=== PATIENT | female | born 1945 | race Caucasian/White ===

== ENCOUNTER → 2019-11-14 14:01 | Outpatient (BNVA) | payer MEDICARE, OTHER, SELFPAY | PROVIDERS: PCP Registered Nurse; Visit Provider Internal Medicine Rheumatology | DX: M25.511 Pain in right shoulder (principal); Z79.899 Other long term (current) drug therapy; Z11.59 Encounter for screening for other viral diseases; Z11.1 Encounter for screening for respiratory tuberculosis; R76.8 Other specified abnormal immunological findings in serum; R29.898 Other symptoms and signs involving the musculoskeletal system; M70.61 Trochanteric bursitis, right hip; M70.62 Trochanteric bursitis, left hip; M79.10 Myalgia, unspecified site; Y93.9 Activity, unspecified | CPT/HCPCS: 36415; 80076; 81001; 82085; 82306; 82550; 82565; 82570; 84156; 84439; 84443; 85025; 85651; 86140; 86160; 86431; 86480; 86704; 86803; 87340; 99204 ==

== ENCOUNTER → 2019-12-04 10:12 | Outpatient (BNVA) | payer MEDICARE, OTHER, SELFPAY | PROVIDERS: PCP Registered Nurse; Visit Provider Internal Medicine Rheumatology | DX: Z79.899 Other long term (current) drug therapy (principal) | CPT/HCPCS: 36415; 82085 ==

== ENCOUNTER 2019-12-18 03:19 | Emergency (ER) | payer MEDICARE, OTHER, SELFPAY ==
[2019-12-18 03:21] VITALS: PULSE 74; RESP 18; TEMP 36.2; O2SAT 97; BMI 28.3
--- NOTE | 2019-12-18 03:30 | ECG_ITS ---
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 Measurements Intervals [place] Rate: 72 P: 48 MT: 121 QRS: 23 QRSD: 85 T: 26 QT: 373 QTc: 409 Interpretive Statements SINUS RHYTHM POSSIBLE LEFT ATRIAL ENLARGEMENT [-0.1mV P WAVE IN V1/V2] NONSPECIFIC ST & T-WAVE ABNORMALITY No previous ECG available for comparison Electronically Signed On 12-18-2019 17:09:58 CDT by Chica Alvarenga M.D. [id number]
--- NOTE | 2019-12-18 03:37 | W.ED.GENADLT ---
HPI - General Adult General: Chief complaint: General Medical Stated complaint: high blood pressure Time Seen by Provider: 12/18/19 03:27 Source: patient Mode of arrival: ambulatory Limitations: no limitations History of Present Illness: HPI narrative: 74-year-old female has a long history of high blood pressure. Patient states she also gets anxious at times. She states that tonight she is woken up twice and her blood pressure is been in the 200s. She took an extra clonidine and has had no relief. Blood pressure is now 219/108. She denies any chest pain or headache. States she has been feeling anxious about her blood pressure tonight and took an Atarax at home with minimal relief. Associated symptoms: Deny chest pain, dyspnea, headache(s), nausea, rash or vomiting Review of Systems Const: Denies: fever(s), chills, body aches or change in appetite Eyes: Denies: blurry vision or eye discomfort ENMT: Denies: throat pain or dental pain Card: Denies: chest pain Resp: Denies: dyspnea GI: Denies: abdominal pain, nausea, vomiting or diarrhea : Denies: dysuria Musc: Denies: neck pain or back pain Skin/Breast: Denies: rash Neuro: Denies: headache(s) Psych: Denies: depression Lamont/Lymph: Denies: easy bruising All/Imm: Denies: urticaria PFSH ED PFSH: Medical History Encounter for screening for other viral diseases Health education High risk medication use Hyperlipidemia Hypertension IBS (irritable bowel syndrome) Immunization counseling Joint pain Lower extremity weakness Myalgia Pain in joints PMR (polymyalgia rheumatica) Positive JARED (antinuclear antibody) Trochanteric bursitis of both hips Surgical History History of tonsillectomy Family History Other CAD (coronary artery disease) Cancer Chronic kidney disease (CKD) Diabetes Hyperlipidemia Hypertension Stroke Denies family history of Rheumatoid arthritis Lupus Lung disease Social History Smoking and tobacco status: never smoked Alcohol intake: never Marital status: History of recent travel: No Physical Exam Const: COMMON NORMALS: no acute distress, patient oriented x3 and healthy appearing HENMT: COMMON NORMALS: normocephalic and atraumatic HEAD & SCALP: normocephalic and atraumatic Eye: COMMON NORMALS: Equal, round and reactive pupils present and EOMs intact bilaterally PUPIL: Yes Equal, round and reactive pupils present Neck/C-Spine: COMMON NORMALS: full ROM and supple Chest: COMMONS NORMALS: normal inspection of the chest and normal palpation of entire chest wall Resp: COMMON NORMALS: normal respiratory effort, No retractions, No use of accessory muscles and clear to auscultation bilaterally AUSCULTATION: clear to auscultation bilaterally Cardio: COMMON NORMALS: regular rate, regular rhythm and No murmurs present (Cardio) RATE: regular rate RHYTHM: regular rhythm GI: COMMON NORMALS: Normal to inspection, nondistended, normoactive bowel sounds present, Soft to palpation, non-tender and no masses PALPATION: Yes Soft to palpation Extremity: COMMON NORMALS: normal to inspection and full ROM Neuro: COMMON NORMALS: patient oriented x3, moves all extremities and no focal motor deficits Psych: COMMON NORMALS: mental status grossly normal, Normal thought process present and cooperative THOUGHT PROCESS: Normal thought process present Skin: COMMON NORMALS: no rashes or lesions noted and no wounds GENERAL SKIN EXAM: no rashes or lesions noted Course Vital Signs: Vital signs: Vital Signs Temperature 97.2 F L 12/18/19 03:21 Pulse Rate 73 12/18/19 04:05 Respiratory Rate 20 H 12/18/19 04:05 Blood Pressure 180/83 12/18/19 04:05 Pulse Oximetry 94 12/18/19 04:05 MDM - General Adult MDM Narrative: Medical decision making narrative: Suzanna presents here with high blood pressure and is improved. Patient's blood work and EKG are normal. She feels much improved and is stable for discharge. She is to follow-up with PCP in 3 to 5 days and return if worsening. Lab Data: Labs: Lab Results 12/18/19 12/18/19 Range/Units 03:55 03:55 WBC 6.8 (4.0-10.0) 10^3/ uL RBC 5.49 H (4.1-5.3) 10^6/u L Hgb 15.4 H (11.5-15.3) g/dL Hct 48.4 H (37.0-47.0) % MCV 88.2 (81-99) fL MCH 28.1 (28.0-34.0) pg MCHC 31.8 (30.0-36.0) g/dL RDW 13.6 (12.1-15.1) % Plt Count 208 (130-400) 10^3/c mm MPV 12.4 H (7.4-10.4) fL Neut % (Auto) 42.9 % Lymph % (Auto) 47.6 % Jess[place] % (Auto) 7.1 % Eos % (Auto) 1.8 % Baso % (Auto) 0.3 % Neut # (Auto) 2.90 (1.8-7.7) 10^3/u L Lymph # (Auto) 3.2 (0.8-4.8) 10^3/u L Jess[place] # (Auto) 0.5 (0.2-0.9) 10^3/u L Eos # (Auto) 0.1 (0.0-0.8) 10^3/u L Baso # (Auto) 0.0 (0.0-0.1) 10^3/u L Nucleated RBC % (a uto) 0 % Nucleated RBCs # 0.0 /100WBC Sodium 141 (136-145) mmol/L Potassium 3.7 (3.5-5.1) mmol/L Chloride 106 (98-107) mmol/L Carbon Dioxide 23 (22-29) mmol/L Anion Gap 15.7 (5-19) BUN 6 L (8-23) mg/dL Creatinine 0.7 (0.5-0.9) mg/dL GFR Calculation Not Reportable Glucose 118 H (65-115) mg/dL Calculated Osmolal ity 289 (285-295) mOsm/k g Calcium 10.0 (8.5-10.5) mg/dL EKG Data^: EKG 1: Attestation: I personally reviewed and interpreted this EKG as follows: EKG interpretation date: 12/18/19 EKG interpretation time: 03:45 Interpretation: Normal sinus rhythm heart rate [address] and T wave abnormalities QRS 85 QTc 397 Discharge Plan Discharge Patient Disposition: Home Clinical Impression: Hypertension Qualifiers: Hypertension type: unspecified Qualified Code(s): I10 - Essential (primary) hypertension Condition: Stable Prescriptions: No Action atorvastatin 40 mg tablet 40 mg PO DAILY RF: 0 prednisone 5 mg tablet See Rx Instructions PO DAILY Qty: 30 RF: 0 omeprazole 40 mg capsule,delayed release(DR/EC) 40 mg PO DAILY Qty: 30 RF: 3 hydroxyzine HCl 10 mg tablet 10 mg PO TID PRNRF: 0 epinephrine [EpiPen] 0.3 mg/0.3 mL auto-injector 0.3 mg IM Q10M PRNRF: 0 lisinopril 20 mg tablet 20 mg PO DAILY RF: 0 clonidine HCl 0.1 mg tablet 0.1 mg PO BID RF: 0 Discharge Orders: Discharge Order (Routine); Ordered 12/18/19 Ordered By: Karissa Phipps Referrals: Luisa Juan [Primary Care Provider] - 1-3 days Discharge Diet: Advance as tolerated Discharge Activity: Resume usual activity Patient Instructions: Hypertension (ED) Coding Level of Care Code ED Telesales Manager for Chg Fwd Exam Comprehensive
[2019-12-18] MEDS: labetalol 5 mg/mL SDV 20mL 10 MG IVP (04:03)
[2019-12-18] MEDS: LORazepam 2 mg/mL INJ 1 mL 0.5 MG IVP (04:03)
[2019-12-18 04:05] VITALS: BP 180/83; PULSE 73; RESP 20; O2SAT 94
[2019-12-18 04:05] LABS: Basophils % 0.3 %; Eosinophils # 0.1 10^3/uL (0.0-0.8); Eosinophils % 1.8 %; Hematocrit 48.4 % (37.0-47.0); Hemoglobin 15.4 g/dL (11.5-15.3); Lymphocytes # 3.2 10^3/uL (0.8-4.8); Lymphocytes % 47.6 %; Mean Corpuscular HGB Conc 31.8 g/dL (30.0-36.0); Mean Corpuscular Hemoglobin 28.1 pg (28.0-34.0); Mean Corpuscular Volume 88.2 fL (81-99); Mean Platelet Volume 12.4 fL (7.4-10.4); Monocytes # 0.5 10^3/uL (0.2-0.9); Monocytes % 7.1 %; Neutrophils % 42.9 %; Nucleated Red Blood Cells % 0 %; Platelet Count 208 10^3/cmm (130-400); Red Blood Count 5.49 10^6/uL (4.1-5.3); Red Cell Distribution Width 13.6 % (12.1-15.1); White Blood Count 6.8 10^3/uL (4.0-10.0)
[2019-12-18 04:24] LABS: Anion Gap 15.7 (5-19); Blood Urea Nitrogen 6 mg/dL (8-23); Carbon Dioxide 23 mmol/L (22-29); Chloride 106 mmol/L (98-107); Glucose 118 mg/dL (65-115); Osmolality Calculated 289 mOsm/kg (285-295); Potassium 3.7 mmol/L (3.5-5.1); Sodium 141 mmol/L (136-145)
[2019-12-18 04:37] VITALS: BP 153/77; PULSE 54; RESP 18; O2SAT 94
== END 2019-12-18 04:38 | disposition home or self-care (01) ==
PROVIDERS: Emergency Provider Emergency Medicine; PCP Registered Nurse
DX: I10 Essential (primary) hypertension (principal); E78.5 Hyperlipidemia, unspecified
CPT/HCPCS: 12345; 80048; 85025; 93005; 96374; 96375; 99282; 99283; J2060; J3490

== ENCOUNTER → 2019-12-24 13:20 | Outpatient (BNVA) | payer MEDICARE, OTHER, SELFPAY | PROVIDERS: PCP Registered Nurse; Visit Provider Internal Medicine Rheumatology | DX: M79.10 Myalgia, unspecified site (principal); R76.8 Other specified abnormal immunological findings in serum; R29.898 Other symptoms and signs involving the musculoskeletal system; I10 Essential (primary) hypertension; Z79.899 Other long term (current) drug therapy | CPT/HCPCS: 99214 ==

== ENCOUNTER 2020-01-08 14:21 | Outpatient (CLI) | payer MEDICARE, OTHER, SELFPAY ==
--- NOTE | 2020-01-08 14:45 | XR_ITS ---
WS: [id number] SCREENING DEXA SCAN [employer] CLINICAL INFORMATION: chronic steroid use COMPARISON: None. FINDINGS: The L1-L4 bone mineral density measures 1.018 g/cm2. This corresponds to a T score score of -1.3 and Z score of 0.1. Left femoral neck bone mineral density measures 0.807 g/cm2. This corresponds to a T score of -1.6 an d Z score of -0.2. Right femoral neck bone mineral density measures 0.818 g/cm2. This corresponds to a T score -1.5of an d Z score of -0.1. Mean femoral neck bone mineral density measures 0.812 g/cm2. This corresponds to a T score of -1.6 an d Z score of -0.1. XR/XR DEXA axial skeleton* [id number] IMPRESSION: Osteopenia. Patient's FRAX calculated 10 year probability for major osteoporotic fracture i s 28.4 % and osteoporotic hip fracture is 9.5%.
== END 2020-01-08 14:22 | disposition home or self-care (01) ==
LOC: RADWPI 14:27
PROVIDERS: Family Provider Registered Nurse; PCP Registered Nurse; Visit Provider Internal Medicine Rheumatology
DX: Z79.52 Long term (current) use of systemic steroids (principal); M85.89 Other specified disorders of bone density and structure, multiple sites
CPT/HCPCS: 77080

== ENCOUNTER 2021-01-12 03:34 | Emergency (ER) | payer MEDICARE, SELFPAY ==
[2021-01-12 03:43] VITALS: BP 196/95; PULSE 64; RESP 16; O2SAT 97; BMI 29.2
--- NOTE | 2021-01-12 03:59 | W.ED.ALLEREA ---
HPI - Allergic Reaction General: Chief complaint: Allergic Reaction Stated complaint: Allergic Reaction Blood Pressure High Time Seen by Provider: 01/12/21 03:49 History of Present Illness: HPI narrative: 75-year-old female with a history of allergic reactions in the past. She states that they try to new barbecue sauce last night, around 530, and she began to reaction thereafter. She experienced some itching, but mainly tongue and throat swelling and a feeling of mild difficulty swallowing. It seemed to improve for a while, but got worse this morning. She took Benadryl with some improvement, but then again started to rebound. She describes symptoms of diarrhea following these episodes as well. She states that her blood pressure almost always goes up as well. Her blood pressure was 195 systolic at home. Currently is 146 systolic. MD complaint: allergic reaction and facial swelling Onset (ago): hour(s) (10) Associated symptoms: Reports difficulty breathing, dysphagia, facial swelling, itching, nausea and tongue swelling; Deny abdominal pain or lip swelling Treatment prior to arrival: benadryl Previous Allergic Reaction History: angioedema Review of Systems Const: Denies: fever(s) or chills Eyes: Denies: change in vision ENMT: Reports: other Card: Denies: chest pain or palpitations Resp: Reports: dyspnea; Denies: productive cough or non-productive cough GI: Reports: nausea and dysphagia; Denies: abdominal pain All/Imm: Reports: tongue swelling and facial swelling [facility] ED PFSH: Medical History (Updated 01/12/21 @ 05:49 by Galo Ace DO) Encounter for screening for other viral diseases Health education High risk medication use Hyperlipidemia Hypertension IBS (irritable bowel syndrome) Immunization counseling Joint pain Lower extremity weakness Myalgia Pain in joints PMR (polymyalgia rheumatica) Positive JARED (antinuclear antibody) Trochanteric bursitis of both hips Surgical History History of tonsillectomy Family History Other CAD (coronary artery disease) Cancer Chronic kidney disease (CKD) Diabetes Hyperlipidemia Hypertension Stroke Denies family history of Rheumatoid arthritis Lupus Lung disease Social History Smoking and tobacco status: never smoked Alcohol intake: never Marital status: History of recent travel: No Physical Exam Const: COMMON NORMALS: no acute distress, patient oriented x3 and alert HENMT: COMMON NORMALS: normocephalic and Normal external nose present HEAD & SCALP: normocephalic FACE & SINUS: normal facial exam; no erythema and no edema NOSE: Normal external nose present and Normal nares present MOUTH: lip normal and tongue abnormal edematous THROAT: posterior oropharynx normal Eye: COMMON NORMALS: Equal, round and reactive pupils present and EOMs intact bilaterally PUPIL: Yes Equal, round and reactive pupils present Chest: COMMONS NORMALS: normal inspection of the chest Resp: COMMON NORMALS: normal respiratory effort, No use of accessory muscles and clear to auscultation bilaterally AUSCULTATION: clear to auscultation bilaterally Cardio: COMMON NORMALS: regular rate and regular rhythm RATE: regular rate RHYTHM: regular rhythm GI: COMMON NORMALS: Normal to inspection, nondistended, normoactive bowel sounds present and Soft to palpation PALPATION: Yes Soft to palpation Neuro: COMMON NORMALS: patient oriented x3 SENSORIUM/ORIENTATION: Yes alert Skin: COMMON NORMALS: no rashes or lesions noted GENERAL SKIN EXAM: no rashes or lesions noted Course Vital Signs: Vital signs: Vital Signs Pulse Rate 64 01/12/21 03:43 Respiratory Rate 16 01/12/21 03:43 Blood Pressure 196/95 01/12/21 03:43 Pulse Oximetry 97 01/12/21 03:43 MDM - Allergic Reaction MDM Narrative: Medical decision making narrative: 75-year-old female with anaphylactoid type reaction including diarrhea and angioedema. Here she received epinephrine, Pepcid, Benadryl, and Solu-Medrol. She is feeling much better. She is essentially 2 hours out from epinephrine administration. She is had no arrhythmias. Oxygen saturations are 96 to 99% on room air. Her tongue has decreased in size. It is much easier for her to swallow now. She is mildly hypertensive 168/73. She is due for clonidine soon. She will be allowed home. Decreasing dose of Medrol for the next few days. Antihistamine for the next 24 to 48 hours. Discharge Plan Discharge Patient Disposition: Home Clinical Impression: Allergic reaction Qualifiers: Encounter type: initial encounter Qualified Code(s): T78.40XA - Allergy, unspecified, initial encounter Angioedema Qualifiers: Encounter type: initial encounter Qualified Code(s): T78.3XXA - Angioneurotic edema, initial encounter Condition: Stable Prescriptions: New Medrol (Jesus) 4 mg tablets,dose pack See Rx Instructions .ROUTE .COMPLEX Qty: 21 RF: 0 EpiPen 2-Jesus 0.3 mg/0.3 mL auto-injector 0.3 mg IM Q15M PRN (Reason: anaphylaxis) Qty: 2 RF: 0 No Action epinephrine [EpiPen] 0.3 mg/0.3 mL auto-injector 0.3 mg IM Q10M PRNRF: 0 clonidine HCl 0.1 mg tablet 0.1 mg PO BID RF: 0 hydroxyzine HCl 25 mg tablet 25 mg PO TID PRNRF: 0 lisinopril 30 mg tablet 30 mg PO DAILY RF: 0 prednisone 2.5 mg tablet 7.5 mg PO DAILY Qty: 90 RF: 2 omeprazole 40 mg capsule,delayed release(DR/EC) 40 mg PO DAILY Qty: 30 RF: 3 Discharge Orders: Discharge ED (Routine); Ordered 01/12/21 Ordered By: Galo Ace Patient Instructions: Anaphylaxis (ED) Activity Restrictions/Additional Instructions: Take Benadryl 25 mg (1 tab) every 8 hours for the next 36 hours. Other medications as directed. Return for worsening trouble breathing, trouble swallowing, swelling of the face or tongue, other concerning symptoms. Follow-up with your doctor this week. Other medication changes may be needed. Coding Level of Care Code ED Lap Hand Tool for Taryn Ayoub Exam Comprehensive
[2021-01-12] MEDS: EPINEPHrine 1 mg/mL INJ 0.3 MG IM (04:18)
[2021-01-12] MEDS: famotidine 20 mg/2 mL INJ IVP (04:40)
[2021-01-12] MEDS: diphenhydrAMINE 50 mg/mL SDV 1mL IVP (04:45)
--- NOTE | 2021-01-12 05:01 | PC.NURSE ---
PT REPORTS FEELING MUCH BETTER ; SPEECH CLEAR. MY TONGUE DOESN'T FEEL THICK . RESPIRATIONS EVEN, NON-LABORED. LUNGS CLEAR BILATERALLY.
[2021-01-12 05:15] VITALS: BP 160/79; PULSE 80; RESP 16; O2SAT 99
[2021-01-12 06:16] VITALS: BP 164/84; PULSE 82; RESP 16; O2SAT 98
== END 2021-01-12 06:10 | disposition home or self-care (01) ==
PROVIDERS: Emergency Provider Emergency Medicine
DX: T78.3XXA Angioneurotic edema, initial encounter (principal); T78.40XA Allergy, unspecified, initial encounter; E78.5 Hyperlipidemia, unspecified; I10 Essential (primary) hypertension
CPT/HCPCS: 96372; 96374; 96375; 99283; 99284; J0171; J1200; J2930; J3490